=== PATIENT | male | born 1940 | race Hispanic/Latino ===

== ENCOUNTER 2025-03-16 12:37 | Inpatient (IN) | payer OTHER, SELFPAY ==
[2025-03-16] VITALS (10 sets, daily range): BP systolic 126–159; BP diastolic 55–64; BMI 24.6
--- NOTE | 2025-03-16 09:41 | ED.GENMED ---
History of Present Illness
<Makayla Ybarra PA-C - Last Filed: 03/16/25 15:05>
General
Chief Complaint: Breathing Problem
Source: patient and family
Time Seen by Provider: 03/16/25 09:25
History of Present Illness
History of Present Illness:
84yoM with a history of hypertension, COPD, BPH, and remote history of prostate cancer in remission presenting with his daughter for evaluation of ongoing headaches. Patient started with R sided headaches about 2 weeks ago. Daughter noticed that
his right ear appeared very swollen and inflamed last Tuesday so she brought him to [place] ED. He had a head CT at that time which was reportedly normal. 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
Valtrex, gabapentin, and meclizine. Daughter states this symptoms have not improved and he continues to complain of ongoing headaches. He also is having a bitter taste in his mouth so has not been eating much and has not eaten in the past 2 days.
Additionally, he is reporting vertigo and difficulty ambulating. He has developed a new dry cough and dyspnea with exertion. He reports a burning central chest discomfort. Daughter states he has not been getting out of bed so she decided to come
back to the ED for evaluation.
Phy Exam
<Makayla Ybarra PA-C - Last Filed: 03/16/25 15:05>
General Physical Exam
General Presentation: well appearing
General Skin: warm and dry
General Habitus: normal and elderly
General Mental: alert
ENT Exam
ENT Exam: TM's normal, normocephalic and other (Crusting rash and erythema noted to R external ear. +R facial asymmetry noted that affects upper face.)
Additional ENT: No meningismus
Eye Exam
Eye Exam: PERRL and EOMI
Cardiovascular Exam
Cardiovascular Exam: regular rate/rhythm
Pulmonary Exam
Pulmonary Exam: lungs clear, no respiratory distress, no rales, no crackles, no rhonchi and no wheezing
Neurological Exam
Neurological Exam: alert
Karen Coma Scale
Eye Opening: Spontaneous
Verbal Response: Oriented
Motor Response: Obeys Commands
GCS Total Score: 15
Skin Exam
Skin Exam: warm/dry
Psychiatric Exam
Psychiatric Exam: normal mood/affect
Scores
<Makayla Ybarra PA-C - Last Filed: 03/16/25 15:05>
Heart Failure Risk
Heart Failure Risk Score: Not Applicable
Course
<Makayla Ybarra PA-C - Last Filed: 03/16/25 15:05>
Orders/Labs/Results
Orders:
Orders
03/16/25 09:39
Cardiac Monitoring- Treatment ONCE
0.9% Sodium Chloride 500 ml [Nss] 500 ml IV BOLUS
03/16/25 09:40
Electrocardiogram (*1) Urgent
Reason for Study: Shortness of Breath
EKG- Treatment ONCE
CR Chest - 2 Views Urgent
Comment:
Reason For Exam: cough, SOB
03/16/25 09:44
Ondansetron Injectable [Zofran] 4 mg IV NOW STA
Oxycodone/Acetaminophen [Percocet 5/325] 1 tablet PO NOW STA
03/16/25 Lunch
Regular
03/16/25 10:22
COVID-19 Antigen Urgent
Source: Nasal Swab
Complete Blood Count/With Diff Urgent
Comprehensive Metabolic Panel Urgent
Magnesium Urgent
Troponin I Urgent
Influenza A+B Rapid Molecular Urgent
STACIE Source: Nasal Swab
Specimen Description:
03/16/25 11:35
Acyclovir [Zovirax Injection] 600 mg 0.9% Sodium Chloride 100 ml [Nss] 100 ml IV NOW
03/16/25 12:06
Admit/Transfer Patient As Directed
Co-Sign Provider:
Level of Care: Inpatient admission
Assign to:: Medical/Surgical
Physician / Group: Jeff Baker
Diagnosis: Varicella infection. paris concepcion syndrome
Reason for Hospitalization: Varicella infection. paris concepcion syndrome
Expected length of stay greater than two midnights?: Yes
ELOS- Estimated Length of Stay in days: 3
I certify the patient meets the requirements for IP care: Yes
PRN Pain Medication Management As Directed
May give lesser potent ordered pain med per pt: Yes
preference::
Protocol:: Medication orders for pain may be administered in a
manner that supports deferring to patient preference
when the pt is:
- Requesting an ordered lesser potent pain medication.
Least to most potent pain medications are defined
as: acetaminophen < NSAID < tramadol < opioids
(morphine, oxycodone, hydromorphone).
- Requesting a lesser dose of the same medication IF
ORDERED.
- Requesting a less intrusive route of administration
if both routes are prescribed by the provider (PO <
IV).
03/16/25 12:15
Code Status As Directed
Resuscitation Status: Do not resuscitate
Reached after discussion with pt or family/Healthcare POA: Yes
DNR Bracelet Application ONCE
03/16/25 13:09
0.9% Sodium Chloride 1000 ml [Nss] 1,000 ml IV 100 mls/hr
Acetaminophen [Tylenol] 650 mg PO Q4HPRN PRN
Artificial Tears (Pf) [Refresh Eye Drops (Pf)] 1 drops BOTH EYES QIDPRN PRN
Bisacodyl [Dulcolax] 10 mg RECTAL [id number] PRN
Docusate W/Senna [Senokot-S] 1 tablet PO BIDPRN PRN
Ipratropium/Albuterol Sulfate [Duoneb] 3 ml INH R Q4HPRN PRN
Ondansetron Injectable [Zofran] 4 mg IV Q6HPRN PRN
Polyethylene Glycol Powder [Miralax] 17 grams PO DAILYPRN PRN
03/16/25 13:09
Consult Infectious Disease [INFECTIOUS DISEASE CONSULT] Routine
Consulting Provider: Yoly Rodriguez
Was physician already notified: Yes
Reason for consult: varicella infection
MR Brain Without Contrast Routine
Comment:
Reason For Exam: variceall infection, headache. facial paresis
Recent pill cam endoscopy?: No
Activity As Directed
Activity Level: As Tolerated
Vital Signs As Directed
Frequency: Per unit guidelines
Ot Eval And Treat Routine
Pt Eval And Treat Routine
Activity Level: With Assistance
Speech Therapy Eval & Treat Routine
DX Deep Vein Thrombosis Video Routine
03/16/25 18:00
Enoxaparin Sodium [Lovenox] 40 mg SC QPM
03/16/25 22:00
Tamsulosin [Flomax] 0.4 mg PO HS
03/17/25 06:00
Basic Metabolic Panel IN AM
Comprehensive Metabolic Panel IN AM
03/17/25 08:00
Irbesartan [Avapro] 150 mg PO DAILY
Prednisone [Deltasone] 20 mg PO DAILY
03/18/25 06:00
Basic Metabolic Panel IN AM
Comprehensive Metabolic Panel IN AM
Abnormal Lab Results
03/16/25
10:22
MCH 31.2 H pg
(27.0-31.0)
BUN 23 H mg/dl
(9-20)
Glucose 178 H mg/dl
(70-99)
Total Bilirubin 1.5 H mg/dl
(0.2-1.3)
AST 15 L U/L
(17-59)
03/16/25 10:22
03/16/25 10:22
Vital Signs
Initial and Last Documented VS:
Initial Vital Signs
Temp Pulse Resp BP Pulse Ox
97.9 F 70 24 159/64 98
03/16/25 08:58 03/16/25 08:58 03/16/25 08:58 03/16/25 08:58 03/16/25 08:58
Last Documented Vital Signs
Temp Pulse Resp BP Pulse Ox
97.8 F 63 18 127/59 97
03/16/25 09:31 03/16/25 13:56 03/16/25 13:56 03/16/25 13:56 03/16/25 13:56
<Dean Woodson, DO - Last Filed: 03/16/25 11:15>
Orders/Labs/Results
Orders:
Orders
03/16/25 09:39
Cardiac Monitoring- Treatment ONCE
0.9% Sodium Chloride 500 ml [Nss] 500 ml IV BOLUS
03/16/25 09:40
Electrocardiogram (*1) Urgent
Reason for Study: Shortness of Breath
EKG- Treatment ONCE
CR Chest - 2 Views Urgent
Comment:
Reason For Exam: cough, SOB
03/16/25 09:44
Ondansetron Injectable [Zofran] 4 mg IV NOW STA
Oxycodone/Acetaminophen [Percocet 5/325] 1 tablet PO NOW STA
03/16/25 Lunch
Regular
03/16/25 10:22
COVID-19 Antigen Urgent
Source: Nasal Swab
Complete Blood Count/With Diff Urgent
Comprehensive Metabolic Panel Urgent
Magnesium Urgent
Troponin I Urgent
Influenza A+B Rapid Molecular Urgent
STACIE Source: Nasal Swab
Specimen Description:
03/16/25 11:35
Acyclovir [Zovirax Injection] 600 mg 0.9% Sodium Chloride 100 ml [Nss] 100 ml IV NOW
03/16/25 12:06
Admit/Transfer Patient As Directed
Co-Sign Provider:
Level of Care: Inpatient admission
Assign to:: Medical/Surgical
Physician / Group: Jeff Baker
Diagnosis: Varicella infection. paris concepcion syndrome
Reason for Hospitalization: Varicella infection. paris concepcion syndrome
Expected length of stay greater than two midnights?: Yes
ELOS- Estimated Length of Stay in days: 3
I certify the patient meets the requirements for IP care: Yes
PRN Pain Medication Management As Directed
May give lesser potent ordered pain med per pt: Yes
preference::
Protocol:: Medication orders for pain may be administered in a
manner that supports deferring to patient preference
when the pt is:
- Requesting an ordered lesser potent pain medication.
Least to most potent pain medications are defined
as: acetaminophen < NSAID < tramadol < opioids
(morphine, oxycodone, hydromorphone).
- Requesting a lesser dose of the same medication IF
ORDERED.
- Requesting a less intrusive route of administration
if both routes are prescribed by the provider (PO <
IV).
03/16/25 12:15
Code Status As Directed
Resuscitation Status: Do not resuscitate
Reached after discussion with pt or family/Healthcare POA: Yes
DNR Bracelet Application ONCE
03/16/25 13:09
0.9% Sodium Chloride 1000 ml [Nss] 1,000 ml IV 100 mls/hr
Acetaminophen [Tylenol] 650 mg PO Q4HPRN PRN
Artificial Tears (Pf) [Refresh Eye Drops (Pf)] 1 drops BOTH EYES QIDPRN PRN
Bisacodyl [Dulcolax] 10 mg RECTAL [id number] PRN
Docusate W/Senna [Senokot-S] 1 tablet PO BIDPRN PRN
Ipratropium/Albuterol Sulfate [Duoneb] 3 ml INH R Q4HPRN PRN
Ondansetron Injectable [Zofran] 4 mg IV Q6HPRN PRN
Polyethylene Glycol Powder [Miralax] 17 grams PO DAILYPRN PRN
03/16/25 13:09
Consult Infectious Disease [INFECTIOUS DISEASE CONSULT] Routine
Consulting Provider: Yoly Rodriguez
Was physician already notified: Yes
Reason for consult: varicella infection
MR Brain Without Contrast Routine
Comment:
Reason For Exam: variceall infection, headache. facial paresis
Recent pill cam endoscopy?: No
Activity As Directed
Activity Level: As Tolerated
Vital Signs As Directed
Frequency: Per unit guidelines
Ot Eval And Treat Routine
Pt Eval And Treat Routine
Activity Level: With Assistance
Speech Therapy Eval & Treat Routine
DX Deep Vein Thrombosis Video Routine
03/16/25 18:00
Enoxaparin Sodium [Lovenox] 40 mg SC QPM
03/16/25 22:00
Tamsulosin [Flomax] 0.4 mg PO HS
03/17/25 06:00
Basic Metabolic Panel IN AM
Comprehensive Metabolic Panel IN AM
03/17/25 08:00
Irbesartan [Avapro] 150 mg PO DAILY
Prednisone [Deltasone] 20 mg PO DAILY
03/18/25 06:00
Basic Metabolic Panel IN AM
Comprehensive Metabolic Panel IN AM
Abnormal Lab Results
03/16/25
10:22
MCH 31.2 H pg
(27.0-31.0)
BUN 23 H mg/dl
(9-20)
Glucose 178 H mg/dl
(70-99)
Total Bilirubin 1.5 H mg/dl
(0.2-1.3)
AST 15 L U/L
(17-59)
03/16/25 10:22
03/16/25 10:22
Vital Signs
Initial and Last Documented VS:
Initial Vital Signs
Temp Pulse Resp BP Pulse Ox
97.9 F 70 24 159/64 98
03/16/25 08:58 03/16/25 08:58 03/16/25 08:58 03/16/25 08:58 03/16/25 08:58
Last Documented Vital Signs
Temp Pulse Resp BP Pulse Ox
97.8 F 63 18 127/59 97
03/16/25 09:31 03/16/25 13:56 03/16/25 13:56 03/16/25 13:56 03/16/25 13:56
<Makayla Ybarra PA-C - Last Filed: 03/16/25 15:05>
MDM/Problems Addressed
Differential Diagnosis Includes:
84yoM here with weakness and ongoing headaches/dizziness. Seen at outside ED last week and diagnosed with [place] Concepcion. No improvement with prednisone and Valtrex. He is not eating or getting out of bed. VSS. Dry mucous membranes noted on exam. There
is a crusting rash to R external ear with R sided facial asymmetry consistent with [place] Concepcion. Other differential diagnosis includes: failure to thrive, dehydration, pneumonia
Initial ED plan: Check cardiac labs, COVID/flu swab, EKG, and CXR. Percocet, Zofran, and fluid bolus for symptoms.
<Makayla Ybarra PA-C - Last Filed: 03/16/25 15:05>
*EKG
Interpreted by ED Provider?: Yes
EKG Intrepretation Date: 03/16/25
Heart Rate: 57
Rate: bradycardiac
Rhythm: sinus
[place]: normal axis
Interval: normal interval
QRS Pattern: normal QRS
Ischemia: no ischemia
*Critical Care Note
Total Time (30-74mins, 75-104mins- exclusive of procedures): Not Applicable
<Makayla Ybarra PA-C - Last Filed: 03/16/25 15:05>
Update Note
Update Note:
No pneumonia seen on x-ray. Viral testing negative. Renal function stable. Given degree of weakness/severity of illness, IV acyclovir ordered and patient admitted for further management.
ED Attending Note
<Makayla Ybarra PA-C - Last Filed: 03/16/25 15:05>
-
Portions of this chart may have been created with voice recognition software.� Occasional wrong word or��sound alike� substitutions may have occurred due to the inherent limitations of voice recognition software.
<Dean Woodson DO - Last Filed: 03/16/25 11:15>
ED Attending Note
Patient seen and examined by attending physician: Yes
I performed the substantive portion of visit, reviewed & personally made and approve the management plan that is documented in note by myself or MARIELA.: Yes
ED Attending Note:
I have seen and evaluated the patient with a [id number] encounter. I have spoken to the advance practicer provider and involved in the medical history, the physical exam, medical decision making.
Evaluation and management service: agree unless noted differently below.
Results interpretation: agree unless noted differently below.
Focused HPI: 84-year-old male presenting with daughter for evaluation of weakness, fatigue and dizziness. 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
Physical exam: Dehydrated, weak and fatigued. Crusting rash to right ear
Medical Decision Making: Given his ongoing symptoms, will give IV dose of acyclovir and ultimately admit. No clinical suspicion for bacterial meningitis
Discharge Plan
Departure
Patient Disposition: Admit
Date of Disposition: 03/16/25
Time of Disposition: 11:27
Presentation/result/management discussed w/ accepting MD/DO: Hospitalist
Discharge Problem:
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
Interventions
Interventions:
*Risk Screen - Suicide Last Done: 03/16/25 09:31
*General Assessment Last Done: 03/16/25 09:31
*Neglect/Abuse Screening Last Done: 03/16/25 09:31
*ED- Fall Risk Assessment Last Done: 03/16/25 09:31
*ED COVID-19 Vaccine History Last Done: 03/16/25 09:31
*Nursing Disposition Last Done: 03/16/25 13:02
ED- Cardiac Assessment Last Done: 03/16/25 09:31
ED- Neurological Assessment Last Done: 03/16/25 09:31
ED- Pulmonary Assessment Last Done: 03/16/25 09:31
Discharge Date and Time
Discharge Date/Time: 03/16/25 13:03
[2025-03-16] MEDS: NSS 500 IV (10:12)
[2025-03-16] MEDS: PERCOCET 5/325 1 TABLET PO (10:13)
[2025-03-16] MEDS: ZOFRAN 4 MG IV (10:13)
[2025-03-16 10:37] LABS: % Basophils 0.8 % (0-2); % Eosinophils 3.2 % (0-6); % Immature Granulocytes 0.3 % (0-0.5); % Lymphocytes 30.5 % (20.5-51.1); % Monocytes 7.6 % (1.7-9.3); % Neutrophils 57.6 % (42.2-75.2); Absolute Basophils 0.1 10^3/uL (0-0.2); Absolute Eosinophils 0.2 10^3/uL (0-0.7); Absolute Monocytes 0.5 10^3/uL (0.1-0.6); Absolute Neutrophils 3.8 10^3/uL (1.4-6.5); Hematocrit 44.4 % (39.0-52.0); Hemoglobin 15.7 g/dL (13.0-18.0); Mean Corp Hgb Conc. 35.4 g/dL (33.0-37.0); Mean Corpuscular Hgb 31.2 pg (27.0-31.0); Mean Corpuscular Volume 88.3 fL (80.0-94.0); Mean Platelet Volume 9.6 fL (7.4-10.4); Nucleated Red Blood Cells % 0 % (-); Platelet Count 239 10^3/uL (130-400); Red Blood Cell Count 5.03 10^6/uL (4.70-6.10); Red Cell Dist. Width 11.6 % (11.5-14.5); White Blood Cell Count 6.6 10^3/uL (4.8-10.8)
[2025-03-16 10:47] LABS: ALT (SGPT) 14 U/L (0-50); AST (SGOT) 15 U/L (17-59); Albumin 4.3 g/dl (3.5-5.0); Alkaline Phosphatase 66 U/L (38-126); Blood Urea Nitrogen 23 mg/dl (9-20); Carbon Dioxide 26 mmol/L (22-30); Chloride 105 mmol/L (98-107); Glucose 178 mg/dl (70-99); Magnesium 2.3 mg/dl (1.6-2.3); Potassium 5.1 mmol/L (3.5-5.1); Sodium 137 mmol/L (135-145); Total Bilirubin 1.5 mg/dl (0.2-1.3); Total Protein 6.5 g/dl (6.3-8.2); eGFR > 60.00
[2025-03-16 10:51] LABS: COVID-19 Antigen Negative (Negative)
[2025-03-16 11:02] LABS: Troponin I < 0.012 ng/ml
[2025-03-16] MEDS: ZOVIRAX INJECTION 112 MG IV (12:07)
--- NOTE | 2025-03-16 12:20 | HPS.HSE ---
Addendum entered and electronically signed by Jeff Baker MD 03/16/25 12:28:
Correction
Chest x-ray done in ER, images reviewed. No signs of pneumonitis/pneumonia.
Original Note:
Family Physician
-
Family Physician: Cindy Singh
Chief Complaint
-
Persistent headache, poor appetite lethargy
History of Present Illness
Patient is a 84-year-old male with past medical history of COPD, BPH, history of prostate cancer posttreatment was brought in by family after patient was noted to be having persistent headache poor appetite lethargy and generalized weakness.
Approximately 2 weeks back patient started to having new right sided ear pain and was evaluated by [place] ER physician 1 week back. 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 Patient had
right-sided facial droop as part of this. Patient was taking the therapy for the last few days although continues to have persistent headache. Patient was also getting more lethargic with loss of appetite and unable to get out of bed. Patient
also complaining of vertigo symptoms. Patient was brought in by daughter for further evaluation. Patient has remained afebrile for last few days. Some reported cough without phlegm production. No associated problems of abdominal
pain/nausea/vomiting/diarrhea.
Patient is Ukrainian-speaking and history is gathered from patient daughter who was at bedside.
Medical History
Past Medical History
Past Medical History: Reports Other
Additional Past Medical History:
COPD, BPH, history of prostate cancer posttreatment
Past Surgical History: Reports Other
Social History
Tobacco: Former Smoker
Alcohol: None
Drug: None
Living: With Family
Family History
Family History: Not pertinent
Allergies / Home Medications
Allergies reflects when Allergies were last updated in [employer].
Home Medications with original date entered in [employer]
Allergy/Medication List:
Allergies
Allergy/AdvReac Type Severity Reaction Status Date / Time
No Known Allergies Allergy Unverified 03/16/25 09:01
Home Medications
gabapentin 300 mg tablet 300 mg PO HS 03/16/25
irbesartan 300 mg tablet 300 mg PO DAILY 03/16/25
meclizine 25 mg capsule 25 mg PO TID 03/16/25
prednisone 20 mg tablet 20 mg PO DAILY 03/16/25
tamsulosin 0.4 mg capsule (Flomax) 0.4 mg PO HS 03/16/25
valacyclovir 1 g PO TID 03/16/25
Review of Systems
-
Unable to obtain full review of systems at this time due to: Language Barrier
Physical Exam
Vital Signs
Vital Signs
Temp Pulse Resp BP Pulse Ox
97.8 F 57 12 126/56 96
03/16/25 09:31 03/16/25 11:15 03/16/25 11:15 03/16/25 11:00 03/16/25 11:15
Physical Exam
General: Cachectic
HEENT: Moist mucous membranes, Atraumatic and Other (Right ear scabbes); No Oxygen
Respiratory: Clear
Cardiac: S1/S2 and Regular Rhythm; No Murmur or Rub
GI: Soft, Non Tender and Non Distended; No Organomegaly
Musculoskeletal: No Clubbing, No Cyanosis and No Edema
Skin: No Rash
Neuro: Nonfocal/grossly intact and Facial Droop (Right side )
Psych: Calm
Laboratory Results
-
03/16/25 10:22
03/16/25 10:22
Laboratory Results
Total Bilirubin 1.5 mg/dl (0.2-1.3) H 03/16/25 10:22
AST 15 U/L (17-59) L 03/16/25 10:22
ALT 14 U/L (0-50) 03/16/25 10:22
Alkaline Phosphatase 66 U/L (38-126) 03/16/25 10:22
Troponin I < 0.012 ng/ml 03/16/25 10:22
Impression/Plan
-
1. Varicella-zoster infection
Coby Concepcion syndrome
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
- Patient already getting Valtrex/steroid therapy at home
- Got IV acyclovir in ER, continue
- ID evaluation requested
- MRI brain without contrast ordered
- Admit to [facility] floor
2. Right facial paresis
- As part of varicella-zoster infection
- Speech therapy evaluation ordered
- Maintain on oral steroids although benefit is questionable at this stage
3. Vertigo
- Likely due to viral infection involving inner ear
- Will require activity with assistance
- PT OT evaluation as possible
4. COPD
- No signs of flareup
- have some reported cough, will do chest x-ray
- Monitor on as needed nebulizer therapy
5. BPH
History of prostate cancer
- Patient is cancer free after initial treatment in 2019 per family
- Maintain on Flomax therapy
- Monitor for any urinary retention
DNR -confirmed with daughter at bedside
Lovenox
Total time spent : 79 mins
I personally saw and examined the patient.
I have reviewed all diagnostic interpretations and treatment plans as written.
Time includes patient management by me, time spent at the patients bedside, time to review lab and imaging results, discussing patient care, documentation in the medical record, and time spent with the family or caregiver and discussing care plan
with RN/Consultants.
[2025-03-16] MEDS: NSS 1000 IV (13:35)
--- NOTE | 2025-03-16 13:44 | CM ---
CM spoke with dtr/Mel
Pt resides with his dtr in a splt level home with 1 RANJA[address]
Pt sleeps on lower level, 4 steps down
Bathes in 2nd floor, 4+4 steps
Pt is indep with his ADLs, no ADs
Has working inhalers in the home
Dtr works out of house and pt is home alone during the days
AxO 4x
PCP- Cindy Graham
Rx- Naima Lincoln
PT/OT/ST pending
Discharge Disposition- anticipate home, watch for DME or VN needs
--- NOTE | 2025-03-16 14:46 | CON.ID ---
Consultation
-
Date/Time Consultation Requested: March 16, 2025 1309
Date/Time Consultation Performed: March 16, 2025 1445
Requesting Provider: Dr. Jeff Baker
Performing Provider: Dr. Yoly Rodriguez
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
Chief Complaint / Past History
Chief Complaint
Head pain, ear pain, dizziness, poor appetite
History of Present Illness
Daughter at bedside provided most of the history. He is an 84-year-old male with history of COPD, BPH who presented to the ER today due to worsening right head pain, ear pain, vertigo, poor appetite. Approximately 2 weeks ago patient started
complaining of right ear pain. Over the course of the week, the right ear progressively got swollen and red. Patient also developed right facial droop. Daughter was concerned about possible stroke and therefore took him to [place] ER on 03/08.
Head CT negative for CVA. 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 He was sent home on Pamela acyclovir 1 g 3 times daily for 7 days, prednisone 20 mg daily, gabapentin, and meclizine. The ear vesicular lesions dried up per daughter. He
completed medications on . However patient's right-sided headache got worse. His right ear pain. He feels dizzy. The room spins around him. His gait is imbalanced. Also complains of bitter taste. Appetite has been poor. No mental
status change. No neck stiffness. No fever or chills. He has never received the zoster vaccine.
Past History
Additional Past Medical History:
COPD
BPH
History of prostate cancer treated
Allergy History:
No Known Allergies Allergy (Unverified 03/16/25 09:01)
Medications Reviewed: Yes
Current Antibiotics:
Acyclovir IV x 1
Social History
Tobacco: Former Smoker
Alcohol: None
Drug: None
Living: With Family
Family History
Family History: Not Pertinent
Review of Systems
Review of Systems
General: Change in Appetite; Negative Fever or Chills
HEENT: Headache; Negative Sinus Problems or Pharyngitis
Cardiovascular: Negative Chest Pain, Dyspnea or Edema
Respiratory: Negative Dyspnea or Cough
Gasteroenterology: Negative Nausea, Vomiting or Diarrhea
Genital / Urological: Negative Dysuria or Flank Pain
Endocrine: Weakness
Neurological: Dizziness
All systems: All other systems were reviewed and were negative
Vital Signs
Temp Pulse Resp BP Pulse Ox
97.8 F 63 18 127/59 97
03/16/25 09:31 03/16/25 13:56 03/16/25 13:56 03/16/25 13:56 03/16/25 13:56
Physical Exam
Physical Exam
Constitutional: Non-toxic
Head: Other (No frontal or max or sinus tenderness)
Eyes: No Conjunctival Hemorrhage and Sclera Anicteric
Pharynx: Benign
Cardiovascular: Regular Rate and S1/S2
Pulmonary: Clear
Gastrointestinal: Non Tender, Non Distended, Normal Bowel Sounds and Decreased Bowel Sounds
Genito-Urinary: Negative CVA Tenderness
Extremities: Negative Edema
Musculoskeletal: Negative Spinal Tenderness
Skin: Other (Right inner ear with crusted lesions)
Neurological: AO x 3 and Other (Right facial paralysis); Negative Meningeal Signs
Lab / Diagnostic Study Results
03/16/25 10:22
03/16/25 10:22
Abs Immat Gran (auto) 0.0 10^3/uL (0-0.05) 03/16/25 10:22
Absolute Neuts (auto) 3.8 10^3/uL (1.4-6.5) 03/16/25 10:22
Absolute Lymphs (auto) 2.0 10^3/uL (1.2-3.4) 03/16/25 10:22
Absolute Monos (auto) 0.5 10^3/uL (0.1-0.6) 03/16/25 10:22
Absolute Basos (auto) 0.1 10^3/uL (0-0.2) 03/16/25 10:22
Immature Gran % 0.3 % (0-0.5) 03/16/25 10:22
Neutrophils % 57.6 % (42.2-75.2) 03/16/25 10:22
Lymphocytes % 30.5 % (20.5-51.1) 03/16/25 10:22
Monocytes % 7.6 % (1.7-9.3) 03/16/25 10:22
Eosinophils % 3.2 % (0-6) 03/16/25 10:22
Basophils % 0.8 % (0-2) 03/16/25 10:22
Microbiology Results
Micro:
03/16/25 10:22 Influenza Types A & B (ELI) - Final
Nasal Swab Negative for Influenza A & B, NAAT
Negative results must be combined with clinical observations
and patient history.
Nucleic Acid Amplification test (NAAT)performed on the
[employer] platform.
03/16/25 CXR: Horizontal band of scarring or subsegmental atelectasis in the anteromedial basilar segment of the left lower lobe.
Assessment / Plan
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
- s/p 7d of valacyclovir 1 g tid, prednisone through 03/14/25
- s/p course of meclizine, gabapentin outpt
- Ear lesions all crusted.
- Pt is experiencing sequelae of HZV oticus with vertigo, ear pain, right side [place]O, altered taste sensation (thus poor appetite).
- No indication for further antiviral.
- Supportive care with lidocaine patch, gabapentin, and opioid analgesic.
- Will benefit from vertigo rehab
- DC airborne isolation.
- Eventual Shingrix vaccine x 2 doses.
Care Review
Plan reviewed with: Physician (Dr. Sigifredo Baker)
[2025-03-16] MEDS: ANESTHETIC LOZENGE 1 LOZENGE PO (16:24)
[2025-03-16] MEDS: TORADOL 15 MG IV (16:24)
[2025-03-16] MEDS: LOVENOX 40 MG SC (17:59)
[2025-03-16] MEDS: NEURONTIN 300 MG PO (21:44)
[2025-03-16] MEDS: FLOMAX 0.4 MG PO (21:44)
[2025-03-16] MEDS: TYLENOL 650 MG PO (21:50)
[2025-03-17] MEDS: NSS 1000 IV ×3 (01:35→22:38)
--- NOTE | 2025-03-17 06:14 | PTCARENOTE ---
Pt with little urine output overnight and poor PO intake. Pt attempted to urinate but was having difficulty. Bladder scanned for 210 mls of urine in bladder. Plan of care ongoing.
[2025-03-17 06:19] LABS: ALT (SGPT) < 10 U/L (0-50); AST (SGOT) 16 U/L (17-59); Albumin 3.4 g/dl (3.5-5.0); Alkaline Phosphatase 57 U/L (38-126); Blood Urea Nitrogen 23 mg/dl (9-20); Calcium 8.2 mg/dl (8.4-10.2); Carbon Dioxide 26 mmol/L (22-30); Chloride 109 mmol/L (98-107); Estimated Creatinine Clearance 52 ml/min; Glucose 124 mg/dl (70-99); Potassium 4.8 mmol/L (3.5-5.1); Sodium 138 mmol/L (135-145); Total Bilirubin 1.3 mg/dl (0.2-1.3); Total Protein 5.5 g/dl (6.3-8.2); eGFR > 60.00
[2025-03-17 07:05] VITALS: BP 122/54
[2025-03-17 08:42] VITALS: BP 144/60; BP 150/65; PULSE 67; PULSE 68; O2SAT 97
[2025-03-17] MEDS: NEURONTIN 300 MG PO ×3 (08:45→22:37)
[2025-03-17] MEDS: AVAPRO 150 MG PO (08:45)
[2025-03-17] MEDS: DELTASONE 20 MG PO (08:45)
[2025-03-17] MEDS: LIDOCAINE 4% PATCH 1 PATCH TOPICAL (08:46)
--- NOTE | 2025-03-17 09:38 | PTOTSP ---
SPEECH THERAPY SWALLOW EVALUATION:
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 Assessment of swallowing limited at this time due to patient's
pain/dizziness. However with limited p.o. trials, patient did not exhibit any clear signs of aspiration. Stable respiratory status at this time. Recommend continue Regular texture diet (selecting soft/moist items) and thin liquids. Medications whole
with liquid as best tolerated, one at a time. Aspiration precautions: Upright positioning; Supervision with meals to monitor for signs of aspiration; Thorough mastication; Mastication on Left; Check for pocketing on right; finger/lingual sweep as
needed. D/c oral diet if any decline in mental/respiratory status. Oral care 3x/day and increased mobility as able/tolerated. Patient remains at risk for aspiration due to Coby Concepcion syndrome. Recommend ST to follow, assess diet tolerance and
modify as appropriate, determine indication for instrumental assessment of swallowing.
RECOMMEND:
1) Regular texture diet (selecting soft/moist items) and thin liquids
2) Medications whole with liquid as best tolerated, one at a time
3) Aspiration precautions: Upright positioning; Supervision with meals to monitor for signs of aspiration; Thorough mastication; Mastication on Left; Check for pocketing on right; finger/lingual sweep as needed. D/c oral diet if any decline in
mental/respiratory status
4) Oral care 3x/day and increased mobility as able/tolerated
5) Recommend ST to follow, assess diet tolerance and modify as appropriate, determine indication for instrumental assessment of swallowing
[2025-03-17 09:53] VITALS: BP 144/60; BP 150/65; PULSE 67; PULSE 68; O2SAT 97
--- NOTE | 2025-03-17 11:30 | W.PN.ID1 ---
Date of Service
Date of Service: March 17, 2025
Today's Communication
Continue supportive care.
Assessment / Plan
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
- s/p 7d of valacyclovir 1 g tid, prednisone through 03/14/25
- s/p course of meclizine, gabapentin outpt
- Ear lesions all crusted.
- Pt is experiencing sequelae of HZV oticus with vertigo, ear pain, right side DELGADILLO, altered taste sensation (thus poor appetite).
- No indication for further antiviral.
- Continue supportive care with lidocaine patch, gabapentin, and opioid analgesic.
Increase gabapentin dose to 300mg po tid.
- Will benefit from vertigo rehab
- Eventual Shingrix vaccine x 2 doses.
Chief Complaint
-: Other (Vertigo)
Subjective / Review of Systems
c/o intermitted sharp pain right ear/jaw.
c/o dizziness/imbalance.
Daughter at bedside.
Vital Signs / Physical Exam
Vital Signs
Vital Signs
Temp Pulse Resp BP Pulse Ox
98.8 F 66 17 122/54 98
03/17/25 07:05 03/17/25 07:05 03/17/25 07:05 03/17/25 07:05 03/17/25 07:05
Physical Exam
Constitutional: No Acute Distress and Comfortable
Cardiovascular: Regular Rate and S1/S2
Pulmonary: Clear
Gastrointestinal: Soft, Non Tender, Non Distended and Normal Bowel Sounds
Extremities: Negative Edema
Skin: Other (scabbed, crusted lesions right ear)
Neurological: AO x 3 and Other (right facial paralysis); Negative Meningeal Signs
Objective Data
Lab Data
Lab Results
03/16/25 10:22
03/17/25 04:23
Estimated Creat Clear 52 ml/min 03/17/25 04:23
Total Bilirubin 1.3 mg/dl (0.2-1.3) 03/17/25 04:23
AST 16 U/L (17-59) L 03/17/25 04:23
ALT < 10 U/L (0-50) 03/17/25 04:23
Alkaline Phosphatase 57 U/L (38-126) 03/17/25 04:23
Most recent labs reviewed.
Micro Results:
03/16/25 10:22 Influenza Types A & B (ELI) - Final
Nasal Swab Negative for Influenza A & B, NAAT
Negative results must be combined with clinical observations
and patient history.
Nucleic Acid Amplification test (NAAT)performed on the
[employer] platform.
03/16/25 CXR: Horizontal band of scarring or subsegmental atelectasis in the anteromedial basilar segment of the left lower lobe.
Care Review
Plan reviewed with: Physician (Dr. Sigifredo Baker)
--- NOTE | 2025-03-17 14:28 | W.PN.HOSP.TC ---
Today's Communication/Plan
-
1. Varicella-zoster infection
[place] Concepcion syndrome
- Patient with combination of right facial paresis/right ear scabbing blisters/nystagmus/headache, pointing toward Coby Concepcion syndrome
- Patient already finished 7days Valtrex/steroid therapy at home
- MRI brain without contrast did not show any stroke from potential vasculopathy from varicella. Significant sinus mucosal disease
- ID evaluated and as blisters has scabbed patient in convalescent phase and have discontinued further antibiotic therapy
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
2. Right facial paresis
- As part of varicella-zoster infection
- Speech therapy cleared for reg diet
- Maintain on oral steroids although benefit is questionable at this stage
3. Vertigo
- Likely due to viral infection involving inner ear
- Will require activity with assistance
- PT OT evaluation and vestibular rehab will be required.
4. COPD
- No signs of flareup
- have some reported cough, will do chest x-ray
- Monitor on as needed nebulizer therapy
5. BPH
History of prostate cancer
- Patient is cancer free after initial treatment in 2019 per family
- Maintain on Flomax therapy
- Monitor for any urinary retention
DNR -confirmed with daughter at bedside
Lovenox
Assessment / Plan
Assessment / Plan
Anticipated Discharge: 24 - 48 hours
Subjective/Interval History
-
Date of Service: March 17, 2025
Patient complains of ongoing right-sided pain/headache
Objective Data
-
Labs:
Laboratory Results
03/17/25
04:23
Sodium 138
Potassium 4.8
Chloride 109 H
Carbon Dioxide 26
BUN 23 H
Creatinine 0.8
Glucose 124 H
Calcium 8.2 L
Total Bilirubin 1.3
AST 16 L
ALT < 10
Alkaline Phosphatase 57
Vital Signs:
Vital Signs
Temp Pulse Resp BP Pulse Ox
98.8 F 66 17 122/54 98
03/17/25 07:05 03/17/25 07:05 03/17/25 07:05 03/17/25 07:05 03/17/25 07:05
I&O
03/16/25 03/17/25 03/18/25
06:59 06:59 06:59
Intake Total 600 / 600
Output Total 800 / 800 200 / 200
Balance -200 / -200 -200 / -200
Review of Systems
-
Unable to obtain full review of systems at this time due to: Language Barrier
Physical Exam
-
General: No Apparent Distress and Comfortable
HEENT: Other (Right ear scabbed blisters); Negative Oxygen
Respiratory: Clear to Auscultation
Cardiac: Regular Rhythm and S1/S2; Negative Murmur or Rub
Musculoskeletal: No Edema
Neuro: Awake and Facial Droop (Right side )
Psych: Calm
[2025-03-17 15:05] VITALS: BP 126/73
--- NOTE | 2025-03-17 15:19 | PTCARENOTE ---
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 c/o vertigo with any activity, continues with right side facial paralysis, c/o right inner ear/headache pain, though has been sleeping since after returning from MRI, appetite still poor, PO's
encouraged, vss, will continue to monitor.
[2025-03-17] MEDS: LOVENOX 40 MG SC (17:24)
[2025-03-17] MEDS: FLOMAX 0.4 MG PO (22:37)
[2025-03-17 23:00] VITALS: BP 143/59
[2025-03-18] MEDS: NSS 1000 IV ×2 (02:25→12:50)
[2025-03-18 05:57] LABS: ALT (SGPT) 11 U/L (0-50); AST (SGOT) 18 U/L (17-59); Albumin 3.2 g/dl (3.5-5.0); Alkaline Phosphatase 46 U/L (38-126); Blood Urea Nitrogen 15 mg/dl (9-20); Calcium 8.3 mg/dl (8.4-10.2); Carbon Dioxide 23 mmol/L (22-30); Chloride 111 mmol/L (98-107); Estimated Creatinine Clearance 59 ml/min; Glucose 120 mg/dl (70-99); Potassium 4.4 mmol/L (3.5-5.1); Sodium 136 mmol/L (135-145); Total Bilirubin 1.5 mg/dl (0.2-1.3); Total Protein 5.3 g/dl (6.3-8.2); eGFR > 60.00
[2025-03-18 07:29] VITALS: BP 132/59
[2025-03-18] MEDS: NEURONTIN 300 MG PO ×3 (09:18→21:06)
[2025-03-18] MEDS: LIDOCAINE 4% PATCH 1 PATCH TOPICAL (09:18)
[2025-03-18] MEDS: DELTASONE 20 MG PO (09:18)
[2025-03-18] MEDS: AVAPRO 150 MG PO (09:18)
[2025-03-18] MEDS: ULTRAM 50 MG PO ×3 (09:24→23:59)
[2025-03-18] MEDS: TORADOL 15 MG IV ×2 (09:25→17:06)
[2025-03-18] MEDS: REFRESH EYE DROPS (PF) 1 DROPS BOTH EYES ×2 (09:25→17:07)
[2025-03-18 15:18] VITALS: BP 132/64
--- NOTE | 2025-03-18 15:23 | W.PN.HOSP.TC ---
Addendum entered and electronically signed by Jeffrey Calderon MD 03/18/25 21:46:
Attending Addendum-
I saw and evaluated the patient. I reviewed the resident�s note and agree with findings and plan as documented in the resident�s note. Sub: seen with daughter present. Still feels dizzy and unsteady. Pain in right ear present but improved. Denies
fevers chills. Full 12 point ROS reviewed and negative except as documented Exam: Vitals reviewed in chart GEN-NAD HEENT right facial droop heart RRR lungs clear abd soft LE no edema
Plan:
#Varicella-zoster infection
- Pony Concepcion syndrome
- Patient with combination of right facial paresis/right ear scabbing blisters/nystagmus/headache
- Patient already finished 7days Valtrex/steroid therapy at home
- MRI brain without contrast did not show any stroke from potential vasculopathy from varicella. Significant sinus mucosal disease
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
- DC steroids completed antivirals
- shingles vaccine as OP
- cont gabapentin
# Right facial paresis
- As part of varicella-zoster infection
- Speech therapy cleared for reg diet
- DC oral steroids
# Vertigo
- Likely due to viral infection involving inner ear
- Will require activity with assistance
- PT OT evaluation and vestibular rehab as OP
# COPD
- No signs of flareup
- Monitor on as needed nebulizer therapy
# BPH
History of prostate cancer
- Patient is cancer free after initial treatment in 2019 per family
- Maintain on Flomax therapy
- Monitor for any urinary retention
DNR
Lovenox
Dispo DC in am awaiting PT OT recs for DC SW input pending likely home with HC lives alone
Time spent coordinating care, review of plan of care with resident, personally reviewed records in EMR, med rec, consults, notes, labs, radiology, d/w nursing and POA � 51 mins
Original Note:
Today's Communication/Plan
-
DC steroids
Assessment / Plan
Assessment / Plan
Assessment
84-year-old male with history of COPD, BPH who presented to the ER today due to worsening right head pain, ear pain, vertigo�secondary to herpes zoster oticus/Coby Concepcion syndrome.
Plan
# Pony Concepcion syndrome/herpes zoster oticus
Patient was diagnosed with herpes zoster in [place] [facility] on 03/08�finished a course of valacyclovir, prednisone.
Patient had right-sided facial paralysis, crusted lesions on the right ear pinna.
Presented to the ER with vertigo, right-sided headache, gait imbalance, dysgeusia.
MRI brain without contrast�no evidence of stroke
Likely sequela from varicella zoster infection
Was given a dose of acyclovir
ID on board�DC'd further antiviral treatment.
No indication of steroids at this time, will discontinue.
Speech therapy cleared for regular diet
Continue gabapentin, meclizine
#Vertigo/gait imbalance
Outpatient vestibular therapy
PT/OT recommended SNF versus HH
Patient's daughter concerned that he may not do well at home without assistance
Requested for some time to finalize
#COPD
Not in acute exacerbation
Monitor
#BPH
History of prostate cancer
Continue Flomax
#DVT prophylaxis�Lovenox subcu
CODE STATUS�DNR
Anticipated Discharge: Within 24 hours
Subjective/Interval History
-
Date of Service: March 18, 2025
Patient's daughter at bedside. She states that his ear pain has not improved, and he still feels dizzy when ambulating.
Objective Data
-
Labs:
Laboratory Results
03/18/25
05:22
Sodium 136
Potassium 4.4
Chloride 111 H
Carbon Dioxide 23
BUN 15
Creatinine 0.7
Glucose 120 H
Calcium 8.3 L
Total Bilirubin 1.5 H
AST 18
ALT 11
Alkaline Phosphatase 46
Vital Signs:
Vital Signs
Temp Pulse Resp BP Pulse Ox
97.7 F 66 14 132/64 97
03/18/25 15:18 03/18/25 15:18 03/18/25 15:18 03/18/25 15:18 03/18/25 15:18
I&O
03/17/25 03/18/25 03/19/25
06:59 06:59 06:59
Intake Total 600 / 600 1840 / 1840
Output Total 800 / 800 1525 / 1525
Balance -200 / -200 315 / 315
Review of Systems
-
All other systems: Reviewed and negative
Physical Exam
-
General: No Apparent Distress
HEENT: Normocephalic, Atraumatic, Moist Mucous Membranes and Other (Right ear pinna has crusted lesions)
Respiratory: Clear to Auscultation
Cardiac: Regular Rhythm and S1/S2
GI: Soft, Nontender, Nondistended and Normal Bowel Sounds
Skin: Warm and Dry
Neuro: Awake, Alert, Oriented, AO x 3, Nonfocal/Grossly Intact, No Sensory Deficits and Facial Droop (On the right side)
Psych: Calm
[2025-03-18] MEDS: LOVENOX 40 MG SC (17:07)
[2025-03-18] MEDS: FLOMAX 0.4 MG PO (21:06)
[2025-03-18 23:00] VITALS: BP 132/68
[2025-03-19] MEDS: NSS 1000 IV (00:26)
[2025-03-19 05:44] LABS: Hematocrit 36.7 % (39.0-52.0); Hemoglobin 12.6 g/dL (13.0-18.0); Mean Corp Hgb Conc. 34.3 g/dL (33.0-37.0); Mean Corpuscular Hgb 31.3 pg (27.0-31.0); Mean Corpuscular Volume 91.3 fL (80.0-94.0); Mean Platelet Volume 9.5 fL (7.4-10.4); Platelet Count 226 10^3/uL (130-400); Red Blood Cell Count 4.02 10^6/uL (4.70-6.10); Red Cell Dist. Width 11.6 % (11.5-14.5); White Blood Cell Count 6.8 10^3/uL (4.8-10.8)
[2025-03-19 06:44] LABS: Blood Urea Nitrogen 20 mg/dl (9-20); Calcium 8.3 mg/dl (8.4-10.2); Carbon Dioxide 22 mmol/L (22-30); Chloride 111 mmol/L (98-107); Estimated Creatinine Clearance 59 ml/min; Glucose 132 mg/dl (70-99); Potassium 4.7 mmol/L (3.5-5.1); Sodium 136 mmol/L (135-145); eGFR > 60.00
[2025-03-19 07:34] VITALS: BP 168/71
[2025-03-19] MEDS: LIDOCAINE 4% PATCH TOPICAL (09:03)
[2025-03-19] MEDS: ULTRAM 50 MG PO (09:14)
[2025-03-19] MEDS: AVAPRO 150 MG PO ×2 (09:15→14:25)
[2025-03-19] MEDS: NEURONTIN 300 MG PO (09:15)
--- NOTE | 2025-03-19 10:40 | VNURNOTE ---
Chart reviewed. Spoke with patient's daughter Mel. Mel stated she is now planning on her father recuperating at her sister Sarika's house: [address] [place] [address]. Her sister will be home during the day w/pt. This author explained
that unfortunately [facility] does not service that area. CM will investigate other agencies that service that area. Daughter was agreeable. This author notified [facility]OU[facility] Francois.
[2025-03-19] MEDS: REFRESH EYE DROPS (PF) 1 DROPS BOTH EYES (10:57)
--- NOTE | 2025-03-19 11:35 | CM ---
Addendum entered by Priscila Ward RN 03/19/25 16:39:
Addendum spoke with Kailey at [facility] she is aware VN referral is cancelled for this pt.
Addendum entered by Priscila Ward RN 03/19/25 16:36:
Dgt drove pt home.
[facility] called back and said they could accept Pt .
Spoke with abbie at [facility] to cancel referral.
PLAN Home with family [facility]UM[facility] fax [phone]
Addendum entered by Priscila Ward RN 03/19/25 13:39:
[facility] does not accept his insurance . Called [facility] they do not accept his insurance
Spoke with Jeri at [facility] she said they accept in that area and to send referral.
Referral sent to care port.
PLAN Home with [facility] fax [phone]
Original Note:
Md entered order for discharge.
Spoke with dgt LUDY [phone] she said she will drive pt home.
Offered VN she requested [facility] . Rosanna spoke with dgt she changed her mind and pt will be staying at [facility] house: [address] [facility] [address]. Her sister will be home during the day w/pt.
Reviewed IMM with dgt she agrees with dc. IMM emailed to [email or web address]
[facility] can not service area.
Contacted [facility] she accepted pt.
Referral in care port.
PLAN Home with family [facility] fax [phone]
[2025-03-19 13:01] VITALS: BP 160/60; PULSE 63; O2SAT 98
[2025-03-19 14:23] VITALS: BP 168/64
--- NOTE | 2025-03-19 19:04 | W.PN.HOSP.TC ---
Addendum entered and electronically signed by Jeffrey Calderon MD 03/19/25 22:30:
Attending Addendum-
I saw and evaluated the patient. I reviewed the resident�s note and agree with findings and plan as documented in the resident�s note. Sub: seen with daughter present. very thankful of care. denies dizziness.seen walking with PT and doing great!
Pain in right ear improved. Denies fevers chills. Full 12 point ROS reviewed and negative except as documented Exam: Vitals reviewed in chart GEN-NAD HEENT right ear with crusted over vesicles, right facial droop heart RRR lungs clear abd soft LE no
edema
Plan:
#Varicella-zoster infection
- Coby Concepcion syndrome
- Patient with combination of right facial paresis/right ear scabbing blisters/nystagmus/headache
- Patient already finished 7days Valtrex/steroid therapy at home
- MRI brain without contrast did not show any stroke from potential vasculopathy from varicella. Significant sinus mucosal disease
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
- DC steroids completed antivirals
- shingles vaccine as OP
- cont gabapentin as OP
# Right facial paresis
- As part of varicella-zoster infection
- Speech therapy cleared for reg diet
- DC oral steroids
- use eye patch as OP
# Vertigo
- Likely due to viral infection involving inner ear
- Will require activity with assistance
- vestibular rehab as OP
# COPD
- No signs of flareup
- Monitor on as needed nebulizer therapy
# BPH
History of prostate cancer
- Patient is cancer free after initial treatment in 2019 per family
- Maintain on Flomax therapy
- Monitor for any urinary retention
DNR
Lovenox
Dispo DC home with HC
Time spent coordinating care, DC planning, review of DC plan of care with resident, transition of care, review of records, med rec/scripts sent electronically, consults, notes, d/w consultants, nursing, family, and CM� 33 mins
Original Note:
Today's Communication/Plan
-
Discharge home with home health.
Assessment / Plan
Assessment / Plan
Assessment
84-year-old male with history of COPD, BPH who presented to the ER today due to worsening right head pain, ear pain, vertigo�secondary to herpes zoster oticus/[place] Concepcion syndrome.
Discharge home with home health care.
Plan
# Linn Concepcion syndrome/herpes zoster oticus
Patient was diagnosed with herpes zoster in [facility] on 03/08�finished a course of valacyclovir, prednisone.
Patient had right-sided facial paralysis, crusted lesions on the right ear pinna.
Presented to the ER with vertigo, right-sided headache, gait imbalance, dysgeusia.
MRI brain without contrast�no evidence of stroke
Likely sequela from varicella zoster infection
Was given a dose of acyclovir
ID on board�DC'd further antiviral treatment.
No indication of steroids at this time, will discontinue.
Speech therapy cleared for regular diet
Continue gabapentin, meclizine
Prescription given for tramadol for pain at discharge-50 mg, twice daily, for 5 days.
#Vertigo/gait imbalance
Outpatient vestibular therapy
PT/OT recommended SNF versus
Patient's daughter concerned that he may not do well at home without assistance
Vestibular rehab as outpatient
#COPD
Not in acute exacerbation
Monitor
#BPH
History of prostate cancer
Continue Flomax
#DVT prophylaxis�Lovenox subcu
CODE STATUS�DNR
Anticipated Discharge: Today
Subjective/Interval History
-
Date of Service: March 19, 2025
Patient reports having ear pain.
Objective Data
-
Vital Signs:
Vital Signs
Temp Pulse Resp BP Pulse Ox
98.0 F 64 16 168/64 96
03/19/25 14:23 03/19/25 14:23 03/19/25 14:23 03/19/25 14:23 03/19/25 14:23
I&O
03/18/25 03/19/25 03/20/25
06:59 06:59 06:59
Intake Total 1840 / 1840 2880 / 2880
Output Total 1525 / 1525
Balance 315 / 315 2880 / 2880
Physical Exam
-
General: No Apparent Distress
HEENT: Normocephalic, Atraumatic and Other (Right ear auricle has crusted lesions)
Respiratory: Clear to Auscultation
Cardiac: Regular Rhythm and S1/S2
GI: Soft, Nontender, Nondistended and Normal Bowel Sounds
Skin: Warm and Dry
Neuro: Awake, Alert, Oriented, AO x 3, Nonfocal/Grossly Intact and Facial Droop (On the right)
--- NOTE | 2025-03-20 05:44 | W.DCSUMMARY ---
Addendum entered and electronically signed by Jeffrey Calderon MD 03/20/25 13:46:
Read, reviewed, and agree.
Wild Calderon MD
Original Note:
Documented by User: Mary Lou Burns MD, Resident 03/20/25 06:46
Discharge Summary
Discharge Data
Date of Admission: 03/16/25
Date of Discharge: 03/19/25
-
Pending Results: No
Hospital Course
Discharging Physician : Dr. Calderon, Dr. Barreto.
Disposition : Home with home healthcare
Primary care physician : Dr. Cindy Singh
Principal Discharge diagnosis : Herpes zoster oticus/Coby Concepcion syndrome, vertigo
Chronic Discharge diagnosis : COPD, BPH,
Hospital Course : 84-year-old male with history of COPD, BPH who presented to the ER due to worsening right head pain, ear pain, vertigo, poor appetite and facial droop on the right side. Patient was diagnosed with varicella zoster infection
involving the face�Coby Concepcion syndrome, finished a course of valacyclovir and steroids as outpatient, but still had residual symptoms as mentioned above. His labs were unremarkable and vitals were stable at presentation. Patient received a dose
of IV acyclovir in the ER, ID was consulted and MRI ordered, and was started on steroids. MRI brain without contrast did not show any stroke from potential vasculopathy from varicella. ID evaluated and as blisters has scabbed patient in convalescent
phase and have discontinued further antibiotic therapy. Patient symptoms are attributed to post herpetic neuropathy, managed symptomatically with adequate pain control with gabapentin, tramadol. Meclizine for vertigo. No indication for steroids at
this time and were discontinued. Speech therapy cleared for regular diet. PT/OT evaluation recommended home with home care or SNF. Patient and patient's family requested to be discharged home with home care. Patient's condition has clinically
improved and stable to be discharged home with home health care. At discharge he was given a prescription for tramadol for 5 days, continue gabapentin. Advised to follow-up with vestibular rehabilitation, receive shingles vaccine as outpatient.
Rest of his chronic medical conditions have been managed as below during his hospital stay.
Essential hypertension�irbesartan
BPH�tamsulosin.
Important imaging findings :
MRI�03/17/2025� 1. No MRI evidence for acute infarct or intracranial hemorrhage.
2. Mild diffuse cerebral and cerebellar volume loss.
3. Minimal white matter leukoaraiosis.
4. SEVERE PARANASAL SINUS MUCOSAL DISEASE.
5. 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
Discharge Plan
-
Patient Disposition: Home with Home Care
Discharge Diagnosis/Procedures: Herpes zoster oticus, vertigo
Diet: Low Sodium
Activity: As tolerated
Driving Restrictions: Not until seen by your Dr
Bathing Restrictions: OK to Shower
Other Services: VN, PT and OT
Referrals:
Cindy Singh MD [Family Provider, Internal Medicine] - in less than 1 week
Additional Discharge Medication Instructions: follow up with vestibular PT- Robina Patel.
Prescriptions:
New
acetaminophen 325 mg Tablet
650 mg PO Q4HPRN PRN (Reason: mild pain/DELGADILLO/temp> 100.4F) Qty: 60 0RF
Refresh Classic (PF) 1.4-0.6 % Dropperette
1 drops BOTH EYES QIDPRN PRN (Reason: eye dryness) Qty: 1 0RF
gabapentin 300 mg capsule
300 mg PO TID Qty: 90 0RF
meclizine 25 mg tablet
25 mg PO TID Qty: 90 0RF
Continued
tamsulosin [Flomax] 0.4 mg Capsule
0.4 mg PO HS
irbesartan 300 mg Tablet
300 mg PO DAILY
Discontinued
prednisone 20 mg Tablet
20 mg PO DAILY
meclizine 25 mg Capsule
25 mg PO TID
gabapentin 300 mg Tablet
300 mg PO HS
valacyclovir
1 g PO TID
Discharge Orders:
Discharge Patient (As Directed); Ordered 03/19/25
Ordered By: Mary Lou Burns
Discharge Date and Time
Discharge Date/Time: 03/19/25 15:24
Print Language: GUYANESE

Documented by User: Jeffrey Calderon MD 03/20/25 13:45
Discharge Summary
Discharge Data
Date of Admission: 03/16/25
Date of Discharge: 03/20/25
Discharge Plan
-
Patient Disposition: Home with Home Care
Discharge Diagnosis/Procedures: Herpes zoster oticus, vertigo
Diet: Low Sodium
Activity: As tolerated
Driving Restrictions: Not until seen by your Dr
Bathing Restrictions: OK to Shower
Other Services: VN, PT and OT
Referrals:
Cindy Singh MD [Family Provider, Internal Medicine] - in less than 1 week
Additional Discharge Medication Instructions: follow up with vestibular PT- Robina Patel.
Prescriptions:
New
acetaminophen 325 mg Tablet
650 mg PO Q4HPRN PRN (Reason: mild pain/DELGADILLO/temp> 100.4F) Qty: 60 0RF
Refresh Classic (PF) 1.4-0.6 % Dropperette
1 drops BOTH EYES QIDPRN PRN (Reason: eye dryness) Qty: 1 0RF
gabapentin 300 mg capsule
300 mg PO TID Qty: 90 0RF
meclizine 25 mg tablet
25 mg PO TID Qty: 90 0RF
Continued
tamsulosin [Flomax] 0.4 mg Capsule
0.4 mg PO HS
irbesartan 300 mg Tablet
300 mg PO DAILY
Discontinued
prednisone 20 mg Tablet
20 mg PO DAILY
meclizine 25 mg Capsule
25 mg PO TID
gabapentin 300 mg Tablet
300 mg PO HS
valacyclovir
1 g PO TID
Discharge Orders:
Discharge Patient (As Directed); Ordered 03/19/25
Ordered By: Mary Lou Burns
Discharge Date and Time
Discharge Date/Time: 03/19/25 15:24
Print Language: GUYANESE
== END 2025-03-19 15:24 | disposition home health service (06) | DRG 74 ==
LOC: 3 WEST ACU 12:37
PROVIDERS: Physician Assistant; Student in an Organized Health Care Education/Training Program; ADMITTING PHYSICIAN Hospitalist; ATTENDING PHYSICIAN Family Medicine; CONSULT PHYSICIAN Internal Medicine Infectious Disease; EMERGENCY PHYSICIAN Student in an Organized Health Care Education/Training Program; FAMILY PHYSICIAN Internal Medicine
DX: B02.21 Postherpetic geniculate ganglionitis (principal); B01.89 Other varicella complications; R64 Cachexia; B02.29 Other postherpetic nervous system involvement; G51.0 Bell's palsy; N40.0 Benign prostatic hyperplasia without lower urinary tract symptoms; Z66 Do not resuscitate; J44.9 Chronic obstructive pulmonary disease, unspecified; I10 Essential (primary) hypertension; Z11.52 Encounter for screening for COVID-19; Z87.891 Personal history of nicotine dependence; Z85.46 Personal history of malignant neoplasm of prostate; Z79.899 Other long term (current) drug therapy; Z68.24 Body mass index [BMI] 24.0-24.9, adult
CPT/HCPCS: 70551; 71046; 80048; 80053; 83735; 84484; 85025; 85027; 87502; 87811; 92526; 92610; 93005; 96374; 96375; 97116; 97163; 97167; 97530; 97535; 99285